=== PATIENT | female | born 1960 | race Caucasian/White ===

== ENCOUNTER 2023-07-03 18:58 | Emergency (ER) | payer MEDICARE, SELFPAY ==
[2023-07-03 19:02] VITALS: BP 155/95
[2023-07-03 19:36] LABS: Urine Albumin Negative (Neg - Trace); Urine Bilirubin Negative (Negative); Urine Character Clear (Clear); Urine Color Yellow; Urine Glucose Negative (Negative); Urine Ketone Negative (Negative); Urine Leukocyte Trace (Negative); Urine Nitrite Negative (Negative); Urine Occult Blood Negative (Negative); Urine Specific Gravity 1.005 (<1.030); Urine Urobilinogen Negative (Neg - 1+)
[2023-07-03 19:37] LABS: % Basophils 1.1 % (0-2); % Eosinophils 4.6 % (0-6); % Immature Granulocytes 0.3 % (0-0.5); % Lymphocytes 43.3 % (20.5-51.1); % Monocytes 9.1 % (1.7-9.3); % Neutrophils 41.6 % (42.2-75.2); Absolute Eosinophils 0.2 10^3/uL (0-0.7); Absolute Lymphocytes 1.5 10^3/uL (1.2-3.4); Absolute Monocytes 0.3 10^3/uL (0.1-0.6); Absolute Neutrophils 1.5 10^3/uL (1.4-6.5); Hematocrit 38.1 % (37.0-47.0); Hemoglobin 13.3 g/dL (12.0-16.0); Mean Corp Hgb Conc. 34.9 g/dL (33.0-37.0); Mean Corpuscular Hgb 31.9 pg (27.0-31.0); Mean Corpuscular Volume 91.4 fL (81.0-99.0); Mean Platelet Volume 8.5 fL (7.4-10.4); Nucleated Red Blood Cells % 0 %; Platelet Count 270 10^3/uL (130-400); Red Blood Cell Count 4.17 10^6/uL (4.20-5.40); Red Cell Dist. Width 12.4 % (11.5-14.5); White Blood Cell Count 3.5 10^3/uL (4.8-10.8)
--- NOTE | 2023-07-03 19:43 | ED.GENMED ---
History of Present Illness
General
Chief Complaint: Flank Pain
Time Seen by Provider: 07/03/23 19:43
Travel History
Have you had any contact with someone who has COVID-19?: No
Do you have any symptoms of coronavirus? Fever > 100 degrees, chills, cough, shortness of breath, sore throat, loss of taste or smell, muscle aches, or headache?: No
History of Present Illness
History of Present Illness:
HPI: Patient presents with bilateral flank pain that started this morning. However she has had similar episodes in the past going back to this past February. She states she has had CT imaging in the past. She has had IBS and other abdominal issues
including GI bleeding in the past. She has had interstitial cystitis.
EXAM:
GENERAL: Well appearing in mild distress
HEENT: Moist oral mucosa
CARDIOVASCULAR: No murmurs, normal heart rate and rhythm, No chest wall tenderness
PULMONARY: No respiratory distress, breath sounds are clear and equal
ABDOMEN: Soft with no peritoneal signs, minimal lower abdominal tenderness
BACK: There is very minimal bilateral CVA tenderness and paraspinal lumbar tenderness
NEUROLOGIC: Excellent strength all extremities, no coordination deficits
PSYCHIATRIC: Appropriate mental status, normal insight and judgement
EXTREMITIES: Nontender, no edema, moves all extremities equally
SKIN: No rash, no lesions
ED COURSE:
7:55 PM: I initially evaluated patient
NUMBER AND COMPLEXITY OF PROBLEMS ADDRESSED AT THE ENCOUNTER
� Chronic conditions affecting care: Bowel obstruction, GI bleed, colitis, asthma, interstitial cystitis
� Acute Exacerbation and/or Progression of Chronic Illness: The pain is a recurring problem
� Differential Diagnosis includes: Exacerbation of interstitial cystitis, musculoskeletal back pain, ureteral stone/colic
AMOUNT AND/OR COMPLEXITY OF DATA TO BE REVIEWED AND ANALYZED
� I performed an independent evaluation of and my interpretation is:
EKG:
CT:
X-rays:
Laboratory Studies: White count 3.5, hemoglobin 13.3, urinalysis unremarkable, bicarb slightly high but otherwise chemistries unremarkable
Other: Renal ultrasound is unremarkable and I personally reviewed images
� Review of other/old records: CT from 02/28/2023 showed no acute abnormality, constipation was noted
� Clinical information was obtained by an independent historian: I spoke to at bedside
� Prescriptions/Medications Considered but not given:
� Further testing considered but not performed: Considered and offered CT imaging but we decided to perform renal ultrasound instead.
RISK OF COMPLICATIONS AND/OR MORBIDITY OR MORTALITY OF PATIENT MANAGEMENT
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
� Discussion with other providers:
� Escalation of care including admission/observation vs risk of discharge considered: Patient has flank pain, will try dose of Toradol as a one-time IV dose as she did report some concern about having history of GI bleeding.
Will not continue NSAIDs will not give anything orally. I reassessed patient at 9:30 PM, her workup is relatively unremarkable, and she appears fairly comfortable but she says the Toradol has not helped all that much. She declines narcotic
analgesia. She will continue topical analgesia. Suspect musculoskeletal etiology
Past History
Past History
ED Past Medical History: Other (Scoliosis, Antonio rods, hysterectomy, oopherectomy, ulcerative colitis, asthma, diverticulitis with diverticular bleed, previous SBO)
ED Past Surgical History: Gynecological and Orthopedic
Social History
Tobacco: Non-smoker
Alcohol: Occasional
Drug: None
Personal:
Living: with family
Employment: Other
Family History
Family History: Other
Phy Exam
Physical Exam
Physical Exam:
See HPI
Course
Orders/Labs/Results
Orders:
Orders
07/03/23 19:13
Complete Blood Count/With Diff Urgent
Comprehensive Metabolic Panel Urgent
Urinalysis Reflex To Culture Urgent
Date Specimen was Collected: 07/03/23
Time Specimen was Collected: 19:05
Urine Microscopic Reflex Cult Urgent
07/03/23 19:55
0.9% Sodium Chloride 1000 ml [Nss] 1,000 ml IV BOLUS
Ketorolac [Toradol] 15 mg IV NOW STA
US Renal Only W/O Bladder Urgent
Comment:
Reason For Exam: flank pain
Abnormal Lab Results
07/03/23
19:13
WBC 3.5 L 10^3/uL
(4.8-10.8)
RBC 4.17 L 10^6/uL
(4.20-5.40)
MCH 31.9 H pg
(27.0-31.0)
Neutrophils % 41.6 L %
(42.2-75.2)
Sodium 133 L mmol/L
(135-145)
Carbon Dioxide 31 H mmol/L
(22-30)
Leukocyte Esterase Rfl Trace A
(Negative)
07/03/23 19:13
07/03/23 19:13
Vital Signs
Initial and Last Documented VS:
Initial Vital Signs
Temp Pulse Resp BP Pulse Ox
98.1 F 68 16 155/95 97
07/03/23 19:02 07/03/23 19:02 07/03/23 19:02 07/03/23 19:02 07/03/23 19:02
Last Documented Vital Signs
Temp Pulse Resp BP Pulse Ox
98.1 F 68 16 155/95 97
07/03/23 19:02 07/03/23 19:02 07/03/23 19:02 07/03/23 19:02 07/03/23 19:02
*Critical Care Note
Total Time (30-74mins, 75-104mins- exclusive of procedures): Not Applicable
ED Attending Note
-
Portions of this chart may have been created with voice recognition software.� Occasional wrong word or��sound alike� substitutions may have occurred due to the inherent limitations of voice recognition software.
Discharge Plan
Departure
Prescriptions:
No Action
digestive enzymes Capsule
1 cap PO BID
Vitamin D3-Vitamin K
1 tab PO DAILY
Slow-Mag
1 tab PO DAILY
loratadine [Claritin] 10 mg Tablet
10 mg PO DAILY PRN (Reason: allergies)
alprazolam [Xanax] 0.25 mg Tablet
0.25 mg PO PRN PRN (Reason: anxiety)
Estrogen/Testrogen Cream
1 applic vaginal HS
Probiotic
1 tab PO DAILY
Urobal
1 tab PO Q8H
alprazolam 0.25 mg tablet
0.25 mg PO BID PRN (Reason: anxiety) Qty: 8 0RF
oxybutynin chloride 5 mg tablet
5 mg PO BID Qty: 20 0RF
Referrals:
NONE,* [Family Provider] -
Interventions
Interventions:
*Risk Screen - Suicide Last Done: 07/03/23 19:02
*General Assessment Last Done: 07/03/23 19:02
*Neglect/Abuse Screening Last Done: 07/03/23 19:02
*ED COVID-19 Vaccine History Last Done: 07/03/23 19:02
[2023-07-03 19:45] LABS: Urine Red Blood Cell None Seen /HPF (0-2); Urine Squamous Cell >30 /LPF (Few); Urine White Cell 0-2 /HPF (0-5)
[2023-07-03 20:01] LABS: ALT (SGPT) 18 U/L (0-35); AST (SGOT) 27 U/L (14-36); Albumin 4.3 g/dl (3.5-5.0); Alkaline Phosphatase 65 U/L (38-126); Blood Urea Nitrogen 11 mg/dl (7-17); Calcium 8.8 mg/dl (8.4-10.2); Carbon Dioxide 31 mmol/L (22-30); Chloride 98 mmol/L (98-107); Glucose 95 mg/dl (70-99); Potassium 3.7 mmol/L (3.5-5.1); Sodium 133 mmol/L (135-145); Total Bilirubin 0.8 mg/dl (0.2-1.3); Total Protein 6.9 g/dl (6.3-8.2); eGFR > 60.00
[2023-07-03] MEDS: TORADOL 15 MG IV (21:23)
[2023-07-03] MEDS: NSS 1000 IV (21:23)
== END 2023-07-03 21:48 | disposition home or self-care (01) ==
LOC: EMR 18:58
PROVIDERS: Emergency Medicine; EMERGENCY PHYSICIAN Emergency Medicine; FAMILY PHYSICIAN Internal Medicine
DX: M54.9 Dorsalgia, unspecified (principal)
CPT/HCPCS: 99284; 96374; 96361; 76775; 80053; 81003; 81015; 85025

== ENCOUNTER → 2023-07-10 15:08 | Outpatient (REF) | payer MEDICARE, SELFPAY | LOC: HWWDC 15:08 | PROVIDERS: ATTENDING PHYSICIAN Internal Medicine | DX: Z12.31 Encounter for screening mammogram for malignant neoplasm of breast (principal) | CPT/HCPCS: 77063; 77067 ==

== ENCOUNTER → 2023-09-14 06:37 | Day surgery (SDC) | payer MEDICARE, SELFPAY | LOC: GI 06:37 | PROVIDERS: ATTENDING PHYSICIAN Internal Medicine Gastroenterology; FAMILY PHYSICIAN Internal Medicine | DX: K51.211 Ulcerative (chronic) proctitis with rectal bleeding (principal); K57.30 Diverticulosis of large intestine without perforation or abscess without bleeding; K64.8 Other hemorrhoids | CPT/HCPCS: 45380; 88305 ==

== ENCOUNTER 2024-01-30 11:39 | Emergency (ER) | payer MEDICARE, SELFPAY ==
[2024-01-30 11:46] VITALS: BP 137/80
--- NOTE | 2024-01-30 11:50 | ED.PDOC.TRB ---
ED Provider Triage
-
Patient seen by provider in Triage?: Seen in Triage
Attestation: A medical screening examination has been initiated by a qualified medical provider. Based on the assessment performed at this time, it has been determined that an emergent medical condition may exist and the patient has been informed
that further medical evaluation and possible additional diagnostic testing may be needed.
HPI: 63-year-old female presents for evaluation of left lower quadrant abdominal pain over the past 24 hours. States that she completed a course of Xifaxan yesterday for diagnosed SIBO. Has a history of ulcerative colitis as well. Patient of
Do.
GENERAL: Alert , in no apparent distress
EYE: No visual abnormalities.
NECK: Trachea midline
ENT: No visible abnormalities.
LUNGS: No acute respiratory distress
NEUROLOGICAL: Alert and oriented
SKIN: Skin intact. No visible changes.
MUSCULOSKELETAL: Moving extremities normally
PSYCH: Normal and appropriate interaction.
Due to left lower quadrant pain, concern for acute colitis versus diverticulitis. Given history of IBD, will obtain CT with IV and p.o. contrast.
This is a medical evaluation conducted in person to initiate diagnostic evaluation and provide initial therapeutics. Please see further documentation by the treating clinician.
[2024-01-30] MEDS: OMNIPAQUE 50 ML PO (11:58)
[2024-01-30 12:05] LABS: % Basophils 1.2 % (0-2); % Eosinophils 2.4 % (0-6); % Immature Granulocytes 0.3 % (0-0.5); % Lymphocytes 24.9 % (20.5-51.1); % Monocytes 8.4 % (1.7-9.3); % Neutrophils 62.8 % (42.2-75.2); Absolute Eosinophils 0.1 10^3/uL (0-0.7); Absolute Lymphocytes 0.8 10^3/uL (1.2-3.4); Absolute Monocytes 0.3 10^3/uL (0.1-0.6); Absolute Neutrophils 2.1 10^3/uL (1.4-6.5); Hematocrit 40.8 % (37.0-47.0); Hemoglobin 14.3 g/dL (12.0-16.0); Mean Corpuscular Hgb 31.2 pg (27.0-31.0); Mean Corpuscular Volume 88.9 fL (81.0-99.0); Mean Platelet Volume 8.5 fL (7.4-10.4); Nucleated Red Blood Cells % 0 %; Platelet Count 260 10^3/uL (130-400); Red Blood Cell Count 4.59 10^6/uL (4.20-5.40); Red Cell Dist. Width 12.1 % (11.5-14.5); White Blood Cell Count 3.3 10^3/uL (4.8-10.8)
[2024-01-30 12:21] LABS: ALT (SGPT) 24 U/L (0-35); AST (SGOT) 30 U/L (14-36); Albumin 4.5 g/dl (3.5-5.0); Alkaline Phosphatase 74 U/L (38-126); Blood Urea Nitrogen 11 mg/dl (7-17); Calcium 9.4 mg/dl (8.4-10.2); Carbon Dioxide 28 mmol/L (22-30); Chloride 99 mmol/L (98-107); Glucose 103 mg/dl (70-99); Potassium 4.2 mmol/L (3.5-5.1); Sodium 141 mmol/L (135-145); Total Bilirubin 1.2 mg/dl (0.2-1.3); Total Protein 7.2 g/dl (6.3-8.2); eGFR > 60.00
[2024-01-30 12:52] VITALS: BMI 21.0
[2024-01-30 12:56] VITALS: BP 126/85
[2024-01-30 13:53] LABS: Urine Albumin Negative (Neg - Trace); Urine Bilirubin Negative (Negative); Urine Character Clear (Clear); Urine Color Yellow; Urine Glucose Negative (Negative); Urine Ketone Negative (Negative); Urine Leukocyte Negative (Negative); Urine Nitrite Negative (Negative); Urine Occult Blood Negative (Negative); Urine Urobilinogen Negative (Neg - 1+)
--- NOTE | 2024-01-30 13:53 | ED.GENMED ---
History of Present Illness
General
Chief Complaint: Abdominal Pain
Source: patient
Exam Limitations: none
Time Seen by Provider: 01/30/24 13:13
Nursing documentation reviewed up to this point in time: agreed with
History of Present Illness
History of Present Illness:
63-year-old female with a past medical history of small bowel bacterial overgrowth, interstitial cystitis, presenting to the emergency department today with concerns of left lower quadrant abdominal pain for the past 4 days. It starts in the left
lower quadrant and radiates in the pelvis. Patient reports that when this first started, she thought to be related to her interstitial cystitis and thought nothing of it. However the pain persisted and has gotten worse. Patient is concerned she
might have diverticulitis as she has known diverticula. Patient has had no fevers or chills, no nausea or vomiting. Of note, patient follows with Dr. Marcos for gastroenterology and was recently diagnosed with small bowel bacterial overgrowth as she
was having many months of yellow diarrhea and abdominal discomfort and was started on a 14-day course of xifaxan which she stopped 5 days ago. Patient reports that her bowel movements have since normalized after the antibiotic treatment but have
started to become loose again over the past 2 days. Patient states that she has never had pain like this before and is not able to compare it to anything else. She denies any burning with urination, hematuria, urinary frequency, flank pain.
Patient denies any recent travel.
Past History
Past History
ED Past Medical History: Other (Scoliosis, Antonio rods, hysterectomy, oopherectomy, ulcerative colitis, asthma, diverticulitis with diverticular bleed, previous SBO)
ED Past Surgical History: Gynecological and Orthopedic
Social History
Tobacco: Non-smoker
Alcohol: Occasional
Drug: None
Personal:
Living: with family
Employment: Other
Family History
Family History: Other
Review of Systems
Review of Systems
All Other Systems: ROS reviewed and negative except as documented in HPI and ROS
Phy Exam
Physical Exam
Physical Exam:
General: Patient is well appearing and in no acute distress; non-toxic
Skin: Warm and dry, no rashes or lesions
Head: Normocephalic, atraumatic
Eyes: Sclera non-icteric. EOMs intact. PERRLA.
Cardiac: Regular rate and rhythm, no murmurs
Peripheral Vascular: No lower extremity swelling or edema
Pulm: Normal respiratory effort
Abdomen: LLQ abdominal tenderness to palpation with no palpable masses
Neuro: CN II-XII intact, no focal neurologic deficits.
Psychiatric: Appropriate mood and affect.
Course
Orders/Labs/Results
Orders:
Orders
01/30/24 11:48
CT Abd/pel W Iv And Oral Contr Urgent
Comment:
Reason For Exam: LLQ pain
Iohexol [Omnipaque] See Protocol PO NOW STA
01/30/24 11:53
Complete Blood Count/With Diff Urgent
Comprehensive Metabolic Panel Urgent
01/30/24 13:44
Urinalysis Reflex To Culture Urgent
Date Specimen was Collected: 01/30/24
Time Specimen was Collected: 13:39
Comment: clean catch
01/30/24 14:26
Acetaminophen [Tylenol] 1,000 mg PO NOW STA
Abnormal Lab Results
01/30/24
11:53
WBC 3.3 L 10^3/uL
(4.8-10.8)
MCH 31.2 H pg
(27.0-31.0)
Absolute Lymphs (auto) 0.8 L 10^3/uL
(1.2-3.4)
Glucose 103 H mg/dl
(70-99)
01/30/24 11:53
01/30/24 11:53
Vital Signs
Initial and Last Documented VS:
Initial Vital Signs
Temp Pulse Resp BP Pulse Ox
97.4 F 79 20 137/80 98
01/30/24 11:46 01/30/24 11:46 01/30/24 11:46 01/30/24 11:46 01/30/24 11:46
Last Documented Vital Signs
Temp Pulse Resp BP Pulse Ox
98.2 F 66 18 134/78 98
01/30/24 15:57 01/30/24 15:57 01/30/24 15:57 01/30/24 15:57 01/30/24 15:57
MDM/Problems Addressed
Differential Diagnosis Includes:
ddx include diverticulitis, UC flare, interstitial cystitis, urinary tract infection, small intestinal bacterial overgrowth, viral syndrome
MDM/Problems Addressed:
63-year-old female with a past medical history of small bowel bacterial overgrowth, diverticulosis, interstitial cystitis, presenting to the emergency department today with concerns of left lower quadrant abdominal pain for the past 4 days. It
starts in the left lower quadrant and radiates in the pelvis. Patient reports that when this first started, she thought to be related to her interstitial cystitis and thought nothing of it. However the pain persisted and has gotten worse. On
exam, patient is well-appearing and in no acute distress, she does have left lower quadrant abdominal tenderness palpation. Her vitals are stable she is afebrile. Her CBC and CMP are unremarkable, no evidence of leukocytosis, no elevation of LFTs,
CT scan is negative for diverticulitis, shows no significant acute abnormality identified. Patient concerned her symptoms may represent interstitial cystitis however her urinalysis here is negative and her pain is primarily not in the pelvis.
Considering patient's history, her return of her yellow diarrhea, did want to try to obtain stool sample however patient was not able to obtain a sample here. Patient states that it takes months to get in with her GI doctor. Did recommend
outpatient follow-up to get stool cultures performed, did send message to the GI senior front end developer to try to allow patient to be scheduled in the office sooner with her match maker. At this point though, patient is stable for discharge from
emergency standpoint, cause of symptoms remain unclear however may be related to her persistent diarrheal illness.
Chronic conditions affecting care:
Ulcerative colitis, small intestinal bacterial overgrowth, thyroid disease, anxiety
*Pulse Oximetry
Patient hypoxic: no
*Critical Care Note
Total Time (30-74mins, 75-104mins- exclusive of procedures): Not Applicable
Data Reviewed
Review of Other/Old Records Reveals: Records (Reviewed record from colonoscopy on 09/14/2023 patient was noted to have diverticulosis and mild ulcerative colitis) and Discharge Summary (reviewe discharge summary when was admitted for a UTI)
Source: patient and records
Prescriptions/Medications Considered But Not Given:
n/a
Patient Management
Escalation/DeEscalation of care consider admission/obs:
Patient stable for discharge, reviewed case with my attending physician.
ED Attending Note
-
Portions of this chart may have been created with voice recognition software.� Occasional wrong word or��sound alike� substitutions may have occurred due to the inherent limitations of voice recognition software.
Discharge Plan
Departure
Patient Disposition: Home (Routine Discharge)
Date of Disposition: 01/30/24
Time of Disposition: 15:49
Patient with high blood pressure during this ER visit?: Yes
Condition: Good
Discharge Problem:
Abdominal pain
Instructions: Abdominal Pain, BLOOD PRESSURE
Prescriptions:
No Action
digestive enzymes Capsule
1 cap PO BID
Vitamin D3-Vitamin K
1 tab PO DAILY
Slow-Mag
1 tab PO DAILY
loratadine [Claritin] 10 mg Tablet
10 mg PO DAILY PRN (Reason: allergies)
alprazolam [Xanax] 0.25 mg Tablet
0.25 mg PO PRN PRN (Reason: anxiety)
Estrogen/Testrogen Cream
1 applic vaginal HS
Probiotic
1 tab PO DAILY
Urobal
1 tab PO Q8H
alprazolam 0.25 mg tablet
0.25 mg PO BID PRN (Reason: anxiety) Qty: 8 0RF
oxybutynin chloride 5 mg tablet
5 mg PO BID Qty: 20 0RF
Referrals:
Ester Cardenas MD [Family Provider] -
Activity Restrictions/Additional Instructions:
I sent a message to your gastroenterology office. They should call you but please call the office within a few days to ensure follow-up and say you are evaluated in the emergency department.
Please call your primary care provider to get stool testing done as an outpatient.
Please return to the emergency department should you experience rectal bleeding, persistent vomiting, fevers or chills, dizziness, any acute worsening of your pain, chest pain, shortness of breath, or any other signs or symptoms concerning to you.
Interventions
Interventions:
*Risk Screen - Suicide Last Done: 01/30/24 11:46
*General Assessment Last Done: 01/30/24 11:46
*Neglect/Abuse Screening Last Done: 01/30/24 11:46
*Nursing Disposition Last Done: 01/30/24 15:58
HA-Uqyctv-Tyoxozlrhe Assessment Last Done: 01/30/24 12:53
Discharge Date and Time
Discharge Date/Time: 01/30/24 15:59
Print Language: [place] CITIZ[place]
[2024-01-30] MEDS: TYLENOL 1000 MG PO (14:53)
[2024-01-30 15:57] VITALS: BP 134/78
== END 2024-01-30 15:59 | disposition home or self-care (01) ==
LOC: EMR 11:39
PROVIDERS: Physician Assistant; EMERGENCY PHYSICIAN Emergency Medicine; FAMILY PHYSICIAN Internal Medicine
DX: R10.32 Left lower quadrant pain (principal); R10.2 Pelvic and perineal pain; R19.7 Diarrhea, unspecified; R03.0 Elevated blood-pressure reading, without diagnosis of hypertension; K57.90 Diverticulosis of intestine, part unspecified, without perforation or abscess without bleeding; K63.8219 Small intestinal bacterial overgrowth, unspecified; K51.90 Ulcerative colitis, unspecified, without complications; F41.9 Anxiety disorder, unspecified; M41.9 Scoliosis, unspecified; N30.10 Interstitial cystitis (chronic) without hematuria; E07.9 Disorder of thyroid, unspecified; F32.A Depression, unspecified; G43.909 Migraine, unspecified, not intractable, without status migrainosus; I44.7 Left bundle-branch block, unspecified; J45.909 Unspecified asthma, uncomplicated; Z98.1 Arthrodesis status; Z87.442 Personal history of urinary calculi; Z87.891 Personal history of nicotine dependence; Z88.5 Allergy status to narcotic agent
CPT/HCPCS: 99285; 74177; 80053; 81003; 85025; Q9967

== ENCOUNTER → 2024-02-26 12:00 | Outpatient (REF) | payer MEDICARE, SELFPAY | LOC: DHSLP 12:00 | PROVIDERS: ATTENDING PHYSICIAN Internal Medicine Critical Care Medicine; FAMILY PHYSICIAN Internal Medicine | DX: G47.33 Obstructive sleep apnea (adult) (pediatric) (principal) | CPT/HCPCS: 95800 ==

== ENCOUNTER → 2024-10-28 13:34 | Outpatient (REF) | payer MEDICARE, SELFPAY | LOC: RCS 13:34 | PROVIDERS: ATTENDING PHYSICIAN Internal Medicine | DX: R00.2 Palpitations (principal) | CPT/HCPCS: 93225; 93226 ==

== ENCOUNTER → 2024-12-17 10:10 | Outpatient (REF) | payer MEDICARE, SELFPAY | LOC: HWRCS 10:10 | PROVIDERS: ATTENDING PHYSICIAN Internal Medicine Cardiovascular Disease; FAMILY PHYSICIAN Internal Medicine | DX: R00.2 Palpitations (principal); I49.1 Atrial premature depolarization | CPT/HCPCS: 93306 ==

== ENCOUNTER 2025-01-23 11:27 | Emergency (ER) | payer MEDICARE, SELFPAY ==
[2025-01-23 11:30] VITALS: BP 112/80
--- NOTE | 2025-01-23 12:13 | ED.MUSCINJ ---
HPI-Injury
General
Chief Complaint: Musculo-Skeletal Complaint
Source: patient
Exam Limitations: none
Time Seen by Provider: 01/23/25 12:01
History of Present Illness-Injury
Initial Injury comments:
64-year-old female with history of interstitial cystitis's as well as plantar fasciitis presents complaining of severe right heel pain and swelling of the heel and foot. She had a shockwave therapy performed 6 days ago on her right heel and has had
progressive pain since then. She did speak with her watershed manager. She has an MRI scheduled for 3 days from now but the pain is significant to the point where she cannot bear weight. No other known injury. No fevers. No chills or sweats.
Past History
Past History
ED Past Medical History: Other (Scoliosis, Antonio rods, hysterectomy, oopherectomy, ulcerative colitis, asthma, diverticulitis with diverticular bleed, previous SBO)
ED Past Surgical History: Gynecological and Orthopedic
Social History
Tobacco: Non-smoker
Alcohol: Occasional
Drug: None
Personal:
Living: with family
Employment: Other
Family History
Family History: Other
Phy Exam
Physical Exam
Physical Exam:
General: Well-appearing female in no acute respiratory distress
Musculoskeletal exam: Right heel tender swollen medially and dorsally. No ecchymosis. No erythema
Vascular: 2+ DP pulse right foot
Neurologic: Good sensation right foot
Injury Course
Orders/Labs/Results
Orders:
Orders
01/23/25 12:13
Crutches-Treatment ONCE
01/23/25 12:32
Urinalysis Reflex To Culture Urgent
Date Specimen was Collected: 01/23/25
Time Specimen was Collected: 12:14
Urine Microscopic Reflex Cult Urgent
Urine Culture Urgent
WON Source: U
Specimen Description:
Date Specimen was Collected: 01/23/25
Time Specimen was Collected: 12:14
Abnormal Lab Results
01/23/25
12:32
Ur Occult Blood Reflex 1+ A
(Negative)
Urine Bacteria (Reflex) Moderate A
(Negative)
Urine Albumin (Reflex) 1+ A
(Neg - Trace)
MDM/Problems Addressed
Differential Diagnosis Includes:
Right heel pain with known history of plantar fasciitis status post recent shockwave therapy to the right heel. Patient was interested and came to the emergency room for an MRI of her foot. I explained that we were unable to get the MRI of her
foot through the ER. She is also having urinary symptoms and is concerned she has a UTI. Urinalysis pending. Will offer crutches for support. Discussed x-ray and CAT scan however patient would prefer an MRI
*Pulse Oximetry
SaO2: 97
Oxygen Mode of Delivery: Room air
Patient hypoxic: no
*Critical Care Note
Total Time (30-74mins, 75-104mins- exclusive of procedures): Not Applicable
Update Note
Update Note:
Urinalysis with moderate bacteria. Patient has urinary symptoms of frequency dysuria urgency. Will cover for UTI pending culture. Patient held off on any imaging of her heel here she rescheduled her MRI for tomorrow.
ED Attending Note
-
Portions of this chart may have been created with voice recognition software.� Occasional wrong word or��sound alike� substitutions may have occurred due to the inherent limitations of voice recognition software.
Discharge Plan
Departure
Patient Disposition: Home (Routine Discharge)
Date of Disposition: 01/23/25
Time of Disposition: 14:04
Patient with high blood pressure during this ER visit?: No
Discharge Problem:
Acute UTI
Prescriptions:
New
cefdinir 300 mg capsule
300 mg PO BID Qty: 14 0RF
No Action
digestive enzymes Capsule
1 cap PO BID
Vitamin D3-Vitamin K
1 tab PO DAILY
Slow-Mag
1 tab PO DAILY
loratadine [Claritin] 10 mg Tablet
10 mg PO DAILY PRN (Reason: allergies)
alprazolam [Xanax] 0.25 mg Tablet
0.25 mg PO PRN PRN (Reason: anxiety)
Estrogen/Testrogen Cream
1 applic vaginal HS
Probiotic
1 tab PO DAILY
Urobal
1 tab PO Q8H
alprazolam 0.25 mg tablet
0.25 mg PO BID PRN (Reason: anxiety) Qty: 8 0RF
oxybutynin chloride 5 mg tablet
5 mg PO BID Qty: 20 0RF
Referrals:
Ester Cardenas MD [Primary Care Provider, Internal Medicine]
Larry Bergeron DO [Family Provider, Internal Medicine]
Activity Restrictions/Additional Instructions:
Take antibiotic as directed. Use crutches as needed for ambulation. Return if worse otherwise follow-up with your doctors as planned
Interventions
Interventions:
*Risk Screen - Suicide Last Done: 01/23/25 11:32
*Neglect/Abuse Screening Last Done: 01/23/25 11:32
*ED- Fall Risk Assessment Last Done: 01/23/25 12:02
ED-Musculoskeletal Assessment Last Done: 01/23/25 12:02
Discharge Date and Time
Print Language: ANDORRAN
[2025-01-23 12:47] LABS: Urine Character Clear (Clear)
[2025-01-23 13:39] LABS: Urine Red Blood Cell 0-2 /HPF (0-2); Urine Squamous Cell 0-2 /LPF (Few); Urine White Cell 0-2 /HPF (0-5)
== END 2025-01-23 14:33 | disposition home or self-care (01) ==
LOC: EMR 11:27
PROVIDERS: Physician Assistant; EMERGENCY PHYSICIAN Emergency Medicine; FAMILY PHYSICIAN Internal Medicine; PRIMARYCARE PHYSICIAN Internal Medicine
DX: N30.10 Interstitial cystitis (chronic) without hematuria (principal); R22.41 Localized swelling, mass and lump, right lower limb; J45.909 Unspecified asthma, uncomplicated
CPT/HCPCS: 99283; 81003; 81015; 87086

== ENCOUNTER → 2025-03-13 08:09 | Outpatient (REF) | payer MEDICARE, SELFPAY | LOC: HWWDC 08:09 | PROVIDERS: ATTENDING PHYSICIAN Internal Medicine | DX: Z13.820 Encounter for screening for osteoporosis (principal); Z12.31 Encounter for screening mammogram for malignant neoplasm of breast | CPT/HCPCS: 77063; 77067; 77080 ==

== ENCOUNTER 2025-03-14 06:13 | Day surgery (SDC) | payer MEDICARE, SELFPAY ==
[2025-03-14] VITALS (12 sets, daily range): BP systolic 103–120; BP diastolic 64–76; BMI 20.9
[2025-03-14] MEDS: NORMOSOL-R/PLASMALYTE-A 1000 IV (10:14)
[2025-03-14] MEDS: SUBLIMAZE 25 MCG IV (12:47)
== END 2025-03-14 14:20 | disposition home or self-care (01) ==
LOC: SDS 06:13
PROVIDERS: ATTENDING PHYSICIAN Urology
DX: N30.10 Interstitial cystitis (chronic) without hematuria (principal); N32.89 Other specified disorders of bladder
CPT/HCPCS: 52204; 52260; 88305

== ENCOUNTER → 2025-03-20 13:34 | Outpatient (REF) | payer MEDICARE, SELFPAY | LOC: HWRAD 13:34 | PROVIDERS: ATTENDING PHYSICIAN Urology; FAMILY PHYSICIAN Internal Medicine | DX: R31.29 Other microscopic hematuria (principal); R10.20 Pelvic and perineal pain unspecified side | CPT/HCPCS: 76770; 76856 ==

== ENCOUNTER → 2025-04-03 10:08 | Outpatient (REF) | payer MEDICARE, SELFPAY | LOC: WDC 10:08 | PROVIDERS: ATTENDING PHYSICIAN Internal Medicine | DX: R92.8 Other abnormal and inconclusive findings on diagnostic imaging of breast (principal) | CPT/HCPCS: 76642 ==

== ENCOUNTER → 2025-04-17 11:55 | Outpatient (REF) | payer MEDICARE, SELFPAY | LOC: MRI 11:55 | PROVIDERS: ATTENDING PHYSICIAN Psychiatry & Neurology Neurology; FAMILY PHYSICIAN Internal Medicine | DX: G37.9 Demyelinating disease of central nervous system, unspecified (principal); R20.0 Anesthesia of skin; Z98.1 Arthrodesis status; K51.919 Ulcerative colitis, unspecified with unspecified complications | CPT/HCPCS: 70553; 72156; A9575 ==